=== PATIENT | female | born 1955 | race Caucasian/White ===

== ENCOUNTER 2017-03-05 17:11 | Inpatient (IN) | payer MEDICAID ==
[~2017-03-05] VITALS: Ht 165.1 cm; Wt 59.0 kg
--- NOTE | 2017-03-05 17:41 | NUR ---
CALLED NURSING SUP. FOR MS BED
--- NOTE | 2017-03-05 18:26 | NUR ---
REPORT GIVEN TO CJ PT SEND ER RM 14
[2017-03-05 18:30] VITALS: BP 149/69
--- NOTE | 2017-03-05 18:30 | NUR ---
PT AOX1, PLEASANT, COOPERATIVE, POOR HISTORIAN. VSS, DENIES RESPIRATORY DISTRESS. SAT 95% 0N 2LNC, LUNGS LEAR.
--- NOTE | 2017-03-05 19:57 | NUR ---
REPORT RECEIVED FROM AM SHIFT. PT IS ALERT AND VERBAL. ACCU CHECK 118. WAITING FOR MD ADMITTING ORDERS
--- NOTE | 2017-03-05 20:00 | NUR ---
HEART RATE NOW ELEVATED AT 120.
[2017-03-05] MEDS ORDERED: HYDROCODONE/APAP 5/325MG 1 EACH TABLET PO PRN (20:30)
[2017-03-05] MEDS ORDERED: MAG HYDROX/AL HYDROX/SIMETH 30 ML UDC PO PRN (20:30)
[2017-03-05] MEDS ORDERED: ONDANSETRON HCL/PF 4 MG/2 ML VIAL IVP PRN (20:30)
[2017-03-05] MEDS ORDERED: ACETAMINOPHEN 325 MG TABLET PO PRN (20:30)
[2017-03-05] MEDS ORDERED: Z GUARD REMEDY 2 OZ OINT TP PRN (20:30)
[2017-03-05] MEDS ORDERED: ZOLPIDEM TARTRATE 5 MG TABLET PO PRN (20:30)
[2017-03-05] MEDS ORDERED: MAGNESIUM HYDROXIDE 30 ML UDC PO PRN (20:30)
--- NOTE | 2017-03-05 22:17 | NUR ---
PT RESTING COMFORTABLY. NO S/S OF DISTRESS NOTED. HEART RATE DECRESING
[2017-03-05 22:18] VITALS: BP 120/62
[2017-03-06] VITALS (8 sets, daily range): BP systolic 122–130; BP diastolic 68–83
--- NOTE | 2017-03-06 03:39 | NUR ---
CONTINUE TO MONITOR.
--- NOTE | 2017-03-06 04:17 | NUR ---
ACCU CHECK 119
--- NOTE | 2017-03-06 05:08 | NUR ---
PT CLEANED AND CHANGED.
[2017-03-06 05:49] LABS: BASOPHILS # (AUTO) 0.1 /CMM (0.0-0.2); BASOPHILS % (AUTO) 0.7 % (0.0-2.0); EOSINOPHILS # (AUTO) 0.1 /CMM (0.0-0.7); HEMATOCRIT 48 % (33-45); HEMOGLOBIN 15.6 g/dL (11.5-14.8); LYMPHOCYTES % (AUTO) 19.5 % (20.0-44.0); MEAN CORPUSCULAR HEMOGLOBIN 30 PG (26.0-33.0); MEAN CORPUSCULAR HGB CONC 33 g/dl (31.0-36.0); MEAN CORPUSCULAR VOLUME 92 fL (82-100); MONOCYTES # (AUTO) 0.4 /CMM (0.1-1.30); MONOCYTES % (AUTO) 2.7 % (2.0-12.0); NEUTROPHILS # (AUTO) 11.5 /CMM (1.8-8.9); NEUTROPHILS % (AUTO) 76.1 % (43.0-81.0); PLATELET COUNT (AUTO) 316 /CMM (150-450); RDW COEFFICIENT OF VARIATION 15.1 (11.5-15.0); RED BLOOD CELL COUNT(AUTO) 5.19 MIL/uL (4.0-5.2); WHITE BLOOD COUNT (AUTO) 15.1 K/uL (4.3-11.0)
[2017-03-06 06:19] LABS: CALCIUM, SERUM 9.4 mg/dL (8.5-10.1); CREATININE 0.5 mg/dL (0.6-1.3); MAGNESIUM 2.1 mg/dL (1.8-2.4); PHOSPHORUS 3.3 mg/dL (2.5-4.9); POTASSIUM 4.4 mmol/L (3.5-5.1)
[2017-03-06 06:28] LABS: THYROID STIMULATING HORMONE 2.717 uIU/mL (0.358-3.74)
--- NOTE | 2017-03-06 06:58 | NUR ---
22 GAUGE H/L PLACED LEFT HAND
[2017-03-06] MEDS ORDERED: BISA10SU8 RC (07:59)
[2017-03-06] MEDS ORDERED: SIMV20TA6 PO (07:59)
[2017-03-06] MEDS ORDERED: POLY15DR40 EACHEYE (07:59)
[2017-03-06] MEDS ORDERED: ACET-868 PO (07:59)
[2017-03-06] MEDS ORDERED: NA P133E RC (07:59)
[2017-03-06] MEDS ORDERED: DOCU-25 PO (07:59)
[2017-03-06] MEDS ORDERED: MULT1TAB11 PO (07:59)
[2017-03-06] MEDS ORDERED: METO25TA3 PO (07:59)
[2017-03-06] MEDS ORDERED: MAGN400O6 PO (07:59)
[2017-03-06] MEDS ORDERED: SACC250C6 PO (07:59)
[2017-03-06] MEDS ORDERED: HYDR-552 PO (07:59)
[2017-03-06] MEDS ORDERED: ASPI81TA2 PO (07:59)
[2017-03-06] MEDS ORDERED: LEVA0.6320 IH (07:59)
--- NOTE | 2017-03-06 10:07 | NUR ---
PATIENT ON BED/ VSS
--- NOTE | 2017-03-06 16:00 | NUR ---
PATIENT AOX1-2. AWAKE AND ABLE TO MAKE NEEDS KNOWN. DENIED PAIN. HOB UP. NO SOB, CONNECTED TO N/C AT 2L KELLY WELL. KEPT CLEAN DRY, AND COMFORTABLE. SAFETY MEASURES PROVIDED AT ALL TIME. ALL NEEDS ANTICIPATED AND ATTENDED.
--- NOTE | 2017-03-06 16:17 | NUR ---
CALLED AND GAVE REPORT TO MIKE CALVILLO FOR BRIGIDA.
--- NOTE | 2017-03-06 16:30 | NUR ---
MS RN NOTES Admitted patient from ER, A/O x2 in a gurney with O2 2 Lpm via NC saturating 95-96% in stable condition. No SOB noted, No sign of distress noted. HOB elevated. Low bed and locked. Side rails up x2. Kept clean and dry. Needs attended and met. Report received from ADAMA Freeman. Will continue to monitor.
--- NOTE | 2017-03-06 19:40 | NUR ---
MS/ CIRCUIT BOARD INSPECTOR; RECEIVED PT FROM THE DAY SHIFT RN FOR CONTINUITY OF CARE. AT THIS TIME PT. SLEEPING BUT AROUSABLE. ABLE TO TALK. BREATHING NON LABORED. NO S/S RESPIRATORY DISTRESS. WITH O2 2L NC. HL ON LT HAND INTACT. BED ON LOWER POSITION AND LOCKED FOR SAFETY. SIDE RAILS ARE UP FOR SAFETY. WILL CONTINUE TO MONITOR. CALL LIGHT WITHIN REACH.
--- NOTE | 2017-03-07 06:25 | NUR ---
MS/ELECTRONICS PARTS SALES REPRESENTATIVE; PT SLEPT AT GOOD INTERVALS LAST NIGHT. BREATHING NON LABORED AND EVEN. WITH O2 2L NC ON. INCONTINENT OF URINE. NO BM. MORNING CARE DONE BY JENNY HSU. HAS BEEN TURNED AND REPOSITIONED. WILL CONTINUE TO MONITOR. CALL LIGHT WITHIN REACH. BED ON LOWER POSITION AND LOCKED FOR SAFETY. SIDE RAILS ARE UP FOR SAFETY. WILL ENDORSE TO THE DAY SHIFT NURSE.
--- NOTE | 2017-03-07 07:20 | NUR ---
RN OPENING NOTES RECEIVED PATIENT IN BED RESTING, RESPONSIVE. ON O2 AT 2LPM VIA NC, SATURATION AT 94%. NO ACUTE DISTRESS, NO SOB. DENIES PAIN OR DISCOMFORT. KEPT PATIENT SAFE AND COMFORTABLE. BED IN LOCKED, LOW POSITION, SIDERAILS UP, HOB ELEVATED, CALL LIGHT IN REACH. WILL CONTINUE TO MONITOR ACCORDINGLY.
[2017-03-07 07:30] LABS: BASOPHILS # (AUTO) 0.1 /CMM (0.0-0.2); BASOPHILS % (AUTO) 0.4 % (0.0-2.0); EOSINOPHILS # (AUTO) 0.2 /CMM (0.0-0.7); EOSINOPHILS % (AUTO) 1.8 % (0.0-6.0); HEMATOCRIT 45 % (33-45); HEMOGLOBIN 14.7 g/dL (11.5-14.8); LYMPHOCYTES # (AUTO) 2.1 /CMM (0.8-4.8); LYMPHOCYTES % (AUTO) 14.9 % (20.0-44.0); MEAN CORPUSCULAR HEMOGLOBIN 30 PG (26.0-33.0); MEAN CORPUSCULAR HGB CONC 33 g/dl (31.0-36.0); MEAN CORPUSCULAR VOLUME 93 fL (82-100); MONOCYTES # (AUTO) 0.3 /CMM (0.1-1.30); MONOCYTES % (AUTO) 1.9 % (2.0-12.0); NEUTROPHILS # (AUTO) 11.1 /CMM (1.8-8.9); PLATELET COUNT (AUTO) 273 /CMM (150-450); RDW COEFFICIENT OF VARIATION 14.7 (11.5-15.0); RED BLOOD CELL COUNT(AUTO) 4.88 MIL/uL (4.0-5.2); WHITE BLOOD COUNT (AUTO) 13.7 K/uL (4.3-11.0)
[2017-03-07 07:53] LABS: CALCIUM, SERUM 8.8 mg/dL (8.5-10.1); CREATININE 0.4 mg/dL (0.6-1.3)
[2017-03-07 08:00] VITALS: BP 118/68
[2017-03-07] MEDS ORDERED: ALBUTEROL FS 2.5 MG/0.5 ML VIAL.NEB NEB PRN (12:30)
[2017-03-07 16:00] VITALS: BP 114/66
--- NOTE | 2017-03-07 19:00 | NUR ---
RN CLOSING NOTES NO CHANGE IN PATIENT'S CONDITION, PATIENT IN BED RESTING. NO ACUTE DISTRESS, NO SOB. DENIES PAIN OR DISCOMFORT. ALL NEEDS ATTENDED AND PROVIDED. BED IN LOW POSITION, LOCKED, HOB ELEVATED, SIDERAILS UPX2, CALL LIGHT IN REACH. ENDORSED TO NIGHT RN FOR BRIGIDA.
--- NOTE | 2017-03-07 19:15 | NUR ---
MS MCKEON OPENING NOTES: RECEIVED PT IN BED RESTING COMFORTABLY. PT IS ON 2LPM VIA NC AND IS TOLERATING WELL. HOB ELEVATED. NO S/S OF DISTRESS NOTED AT THIS TIME. NO COMPLAINTS OF PAIN AT THIS TIME. CALL LIGHT WITHIN PT'S REACH. BED KEPT IN LOW, LOCKED POSITION, AND SIDE RAILS X 2UP. CALL LIGHT WITHIN PT'S REACH. WILL CONTINUE TO MONITOR PT. Addendum: 03/07/17 at 2306 by KASEY WILKERSON RN NO IV NOTED AT THIS TIME. BODY RASH NOTED ALL OVER BODY WELL.
[2017-03-07 20:00] VITALS: BP 130/79
[2017-03-07] MEDS: SIMVASTATIN 20 MG TABLET PO SCH (21:58)
--- NOTE | 2017-03-08 07:00 | NUR ---
RN NOTES: PATIENT RESTING IN BED. NONLABORED BREATHING NOTED ON 2L NASAL CANNULA. PATIENT DENIES PAIN. NO FACIAL GRIMACES NOTED. BED IN LOWEST LOCKED POSITION. CALL LIGHT WITHIN REACH. WILL CONTINUE TO MONITOR
--- NOTE | 2017-03-08 07:15 | NUR ---
MS RN CLOSING NOTES: ALL NEEDS WERE ATTENDED AND ANTICIPATED FOR. PT IN BED RESTING COMFORTABLY WATCHING TELEVISION. PT IS ON 2LPM VIA NC AND IS TOLERATING WELL. HOB ELEVATED. NO S/S OF DISTRESS NOTED AT THIS TIME. NO COMPLAINTS OF PAIN AT THIS TIME. CALL LIGHT WITHIN PT'S REACH. BED KEPT IN LOW, LOCKED POSITION, AND SIDE RAILS X 2UP. ENDORSED TO AM NURSE FOR BRIGIDA.
[2017-03-08 08:00] VITALS: BP 116/82
[2017-03-08] MEDS: ASPIRIN 81 MG TAB.CHEW PO SCH (09:01)
[2017-03-08] MEDS: DOCUSATE SODIUM 100 MG CAPSULE PO SCH (09:02)
[2017-03-08] MEDS: METOPROLOL SUCCINATE 25 MG TAB.SR.24H PO SCH (09:03)
[2017-03-08] MEDS: MULTIVITAMIN/LUTEIN/MINERALS 1 TAB PO SCH (09:07)
[2017-03-08 16:00] VITALS: BP 125/70
--- NOTE | 2017-03-08 18:57 | NUR ---
RN CLOSING NOTES: PATIENT RESTING IN BED. PATIENT AOX2 WITH PERIODS OF CONFUSION. NONLABORED BREATHING NOTED ON 2L NASAL CANNULA. PATIENT DENIES PAIN. NO FACIAL GRIMACES NOTED. NO NAUSEA OR VOMITING NOTED DURING SHIFT. BED IN LOWEST LOCKED POSITION. CALL LIGHT WITHIN REACH. DURING SHIFT, PATIENT TURNED AND REPOSITIONED EVERY 2 HOURS. SKIN KEPT CLEAN AND DRY. WILL ENDORSE TO NEXT SHIFT
--- NOTE | 2017-03-08 19:10 | NUR ---
MS/ARCHEOLOGY FACULTY MEMBER; RECEIVED PT'S REPORTS FROM THE DAY SHIFT RN FOR CONTINUITY OF CARE. AT THIS TIME PT IN BED AWAKE WATCHING TV ABLE TO TALK WHEN ROUNDS MADE. BREATHING NON LABORED. NO S/S RESPIRATORY DISTRESS. HOB AT 45 DEGREES. WITH O2 2L NC ON. NO IV LINE WHEN RECEIVED PER DAY SHIFT RN PT DOES NOT HAVE IV LINE. BED ON LOWER POSITION AND LOCKED FOR SAFETY. ALL SIDE RAILS ARE UP FOR SAFETY. WILL CONTINUE TO MONITOR.
[2017-03-08 20:00] VITALS: BP 129/77
[2017-03-08] MEDS: SIMVASTATIN 20 MG TABLET PO SCH (21:21)
--- NOTE | 2017-03-09 07:00 | NUR ---
MS/CONSULTING UTILITY FORESTER; PT SLEPT AT GOOD INTERVALS. BREATHING NON LABORED. WILL ENDORSE TO THE DAY SHIFT NURSE.
--- NOTE | 2017-03-09 07:52 | NUR ---
RN NOTES: PATIENT RESTING IN BED. NONLABORED BREATHING NOTED ON ROOM AIR. NO SIGNS OF DISTRESS NOTED. PATIENT DENIES PAIN AT THE MOMENT. NO FACIAL GRIMACING NOTED. BED IN LOWEST LOCKED POSITION. CALL LIGHT WITHIN REACH. WILL CONTINUE TO MONITOR
[2017-03-09 08:00] VITALS: BP 121/79
[2017-03-09] MEDS: ASPIRIN 81 MG TAB.CHEW PO SCH (09:05)
[2017-03-09] MEDS: MULTIVITAMIN/LUTEIN/MINERALS 1 TAB PO SCH (09:05)
[2017-03-09] MEDS: METOPROLOL SUCCINATE 25 MG TAB.SR.24H PO SCH (09:06)
[2017-03-09] MEDS: DOCUSATE SODIUM 100 MG CAPSULE PO SCH (09:07)
--- NOTE | 2017-03-09 15:00 | NUR ---
RN NOTES: DR MCBRIDE NOTIFIED OF PATIENT'S RASHES. DR ORDERED TO WITHHOLD DISCHARGE TILL PATIENT IS ASSESSED BY WOUND CARE TEAM. PATIENT DENIES ITCHING, AFEBRILE. NONLABORED BREATHING NOTED. NO SIGNS OF DISTRESS
[2017-03-09 16:00] VITALS: BP 130/72
--- NOTE | 2017-03-09 19:20 | NUR ---
RN NOTES PATIENT RESTING IN BED. NONLABORED BREATHING NOTED ON ROOM AIR. NO SIGNS OF DISTRESS NOTED. PATIENT DENIES PAIN AT THE MOMENT. NO FACIAL GRIMACING NOTED. BED IN LOWEST LOCKED POSITION. CALL LIGHT WITHIN REACH. ENDORSED TO NEXT SHIFT. DURING SHIFT, PATIENT KEPT CLEAN AND DRY. TURNED AND REPOSITIONED EVERY 2 HOURS
[2017-03-09 20:00] VITALS: BP 103/63
[2017-03-09] MEDS: SIMVASTATIN 20 MG TABLET PO SCH (21:14)
--- NOTE | 2017-03-10 07:26 | NUR ---
MS RN NOTES AWAKE & ALERT. NOT IN ANY DISTRESS. NO SOB NOTED. NO S/SX OF ANY PAIN OR DISCOMFORT AT THIS TIME. AM CARE DONE. MONITORED ACCORDINGLY. CALL LIGHT WITHIN REACH. BED IN LOWEST POSITION. SR UP X 3 FOR SAFETY WITH BED ALARM ON. WILL ENDORSE TO NEXT SHIFT.
--- NOTE | 2017-03-10 08:03 | NUR ---
MS RN OPENING NOTES PT ENDORSED WITH UNIVERSAL PREC'S BUT IS WITH QUERIED SCABIES. PT A&0X1 BUT COHERENT AND APPROPRIATE IN CONVERSATION. PT WITH NC 2LPM AND REPORTS NO SOB, NO S/S OF RESP DISTRESS AT THIS TIME. PT REPORTING NO PAIN. PT WITHOUT IVC- ENDORSED MD AWARE. AGGRESSIVE RED AND WHITE RASH NOTES INSIDE ARMS AND PARTS TORSO, PT UNAWARE- WILL REQ MD TO RV. BED IN LOWEST LOCKED POSITION WITH HANDRAILS X4 AND CALL RAMOS WITHIN REACH, PT BRIEFED ON TODAY'S POC, PT WITHOUT CONCERN OR COMPLAINT AT THIS TIME.
[2017-03-10 08:28] VITALS: BP 132/73
[2017-03-10] MEDS: ASPIRIN 81 MG TAB.CHEW PO SCH (08:28)
[2017-03-10] MEDS: DOCUSATE SODIUM 100 MG CAPSULE PO SCH (08:28)
[2017-03-10] MEDS: METOPROLOL SUCCINATE 25 MG TAB.SR.24H PO SCH (08:28)
[2017-03-10] MEDS: MULTIVITAMIN/LUTEIN/MINERALS 1 TAB PO SCH (08:38)
--- NOTE | 2017-03-10 12:03 | NUR ---
WOUND CARE CONSULT: PT PRESENTS WITH RASH MAINLY ON TRUNK OF BODY (CHEST, ABDOMEN AND BACK) WITH SOME RASH TO UPPER EXTREMITIES AND NECK. DEFER TO MD FOR RASH. PT NOTED TO BE INCONTINENT AND TO HAVE LOWER EXTREMITY CONTRACTURES. RECOMMENDATIONS MADE FOR SKIN PROTECTION. DISCUSSED WITH NURSING STAFF. PT TO BE PLACED ON [place] IS[place] LOW AIRLOSS BED. ALL SKIN PROTECTION MEASURES IN PLACE. WILL SEE PRN. MD IN AGREEMENT WITH PLAN OF CARE. Addendum: 03/10/17 at 1206 by KASH MARIO WNDNU Amended: Links added. Addendum: 03/10/17 at 1217 by KASH MARIO WNDNU RASH PRESENT ON ADMISSION PER SENDING FACILITY DOCUMENTATION.
--- NOTE | 2017-03-10 12:05 | NUR ---
CURRENT MORENO SCORE IS 14. Addendum: 03/10/17 at 1206 by KASH MARIO WNDNU Amended: Links added.
--- NOTE | 2017-03-10 14:00 | NUR ---
RN NOTES. CALLED TO GIVE REPORT. NO ANSWER WILL TRY AGAIN.
--- NOTE | 2017-03-10 17:00 | NUR ---
CALLED TO GIVE REPORT, LEFT MESSAGE REQUESTING CALL BACK TO [facility].
--- NOTE | 2017-03-10 19:15 | NUR ---
RN CLOSING NOTE. PT A&OX2 WITH NC AT 2LPM. PT REPORTING NO PAIN. PT IS WITHOUT IVC. PT RASH DOCUMENTED. BELONGINGS ACCOUNTED FOR AND DOCUMENT SIGNED BY RNX2. D/C DOCUMENTATION SIGNED BY RNX2 PT CONFUSED. ENDORSE TO EMT WITH ALL DOCUMENTATION. PT TRANSPORTED VIA EMT TO [facility]. NO REPORT GIVEN AT THIS TIME SNF NOT ANSWERING, WILL CONTINUE TO CALL. PT WITHOUT COMPLAINT AT THIS TIME.
== END 2017-03-10 16:07 | DRG 816 ==
LOC: ER 17:12 → TRANSITION 18:06 → MED 03-06 17:09
DX: T59.811A Toxic effect of smoke, accidental (unintentional), initial encounter (principal); J96.01 Acute respiratory failure with hypoxia; D72.829 Elevated white blood cell count, unspecified; Z86.59 Personal history of other mental and behavioral disorders; Y92.129 Unspecified place in nursing home as the place of occurrence of the external cause
CPT/HCPCS: 36415; 71010-TC; 80048-TC; 80061-TC; 81000-TC; 82962-TC; 83735-TC; 84100-TC; 84443-TC; 85025-TC; 87081-TC; A4606; Z7610